=== PATIENT | female | born 1945 | race Caucasian/White ===

== ENCOUNTER 2017-04-17 21:45 | Emergency (ER) | payer MEDICARE | END 2017-04-17 22:52 | disposition home or self-care (01) | LOC: D.ER 21:45 | DX: S93.401A Sprain of unspecified ligament of right ankle, initial encounter (principal); W19.XXXA Unspecified fall, initial encounter; Y93.89 Activity, other specified; Y92.019 Unspecified place in single-family (private) house as the place of occurrence of the external cause; S93.402A Sprain of unspecified ligament of left ankle, initial encounter; M25.572 Pain in left ankle and joints of left foot; M25.571 Pain in right ankle and joints of right foot ==

== ENCOUNTER → 2017-08-26 11:52 | Outpatient (CLI) | payer MEDICARE | END | disposition home or self-care (01) | LOC: D.MAMMO 11:52 | DX: Z12.31 Encounter for screening mammogram for malignant neoplasm of breast (principal) ==

== ENCOUNTER → 2018-01-28 08:34 | Outpatient (CLI) | payer MEDICARE ==
--- NOTE | ~2018-01-28 | ST ---
PATIENT:MARIO ALBERTO MOREL MEDICAL RECORD: [id number] SEX: F LOCATION:[facility] ORDER #: ADMISSION DATE: 01/28/18 AGE OF PATIENT: 72 REFERRING PHYSICIAN: INTERPRETING PHYSICIAN: CALVIN STEWART MD DATE OF SERVICE: 01/28/2018 PROCEDURE: Nuclear Stress Test. INDICATION: Chest pain of unknown etiology, shortness of breath, hypertension, hyperlipidemia. She was exercised on standard Antonio protocol for 5 minutes, terminated due to achieving max target heart rate response with 31.5 mCi of sestamibi injected at peak stress, 10.9 mCi injected previously for rest images. FINDINGS: Gated SPECT reveals a preserved ejection fraction at 71% with good wall motion and thickening and brightening throughout all segments. SPECT imaging Cardiolite was used as myocardial perfusion agent. There is homogeneous uptake throughout all segments at rest and stress with no evidence of inducible ischemia or previous infarction. OVERALL IMPRESSION: 1. This is a normal nuclear stress test with no evidence of inducible ischemia or previous infarction. 2. Gated SPECT reveals preserved ejection fraction greater than 70%. In this patient with ongoing symptomatology, the current scan does not suggest the presence of hemodynamically significant coronary artery disease. We would evaluate noncardiac etiology of chest pain. TRANSINT:[id number] Voice Confirmation ID: [id number] DOCUMENT ID: [id number] CALVIN STEWART MD at 1856 CC: [id number] DICTATION DATE: 01/29/18 1302 INTERACTIVE MEDIA MARKETING SPECIALIST: 01/29/18 2350 DEP CLI 01/28/18 [id number] [place] [address]
== END | disposition home or self-care (01) ==
LOC: D.HCCARDIO 08:34
DX: I20.9 Angina pectoris, unspecified (principal)

== ENCOUNTER → 2018-05-15 12:02 | Outpatient (CLI) | payer MEDICARE, OTHER | END | disposition home or self-care (01) | LOC: D.US 12:02 | PROVIDERS: ATTEND Family Medicine | DX: E04.1 Nontoxic single thyroid nodule (principal) ==

== ENCOUNTER → 2020-08-25 08:58 | Outpatient (CLI) | payer MEDICARE, OTHER ==
--- NOTE | ~2020-08-25 | EC ---
PATIENT:MARIO ALBERTO MOREL DATE OF SERVICE: 08/25/20 SEX: F MEDICAL RECORD: [id number] DATE OF : 43 LOCATION:[facility] AGE OF PATIENT: 74 ADMISSION DATE: 08/25/20 REFERRING PHYSICIAN: INTERPRETING PHYSICIAN: JORGE KIDD MD ECHOCARDIOGRAM REPORT ECHO CHARGES 4 ECHO COMPLETE Date: 08/25/20 CLINICAL DIAGNOSIS: HEART MURMUR ECHOCARDIOGRAPHIC MEASUREMENTS (adult normal given) AC root (d.<3.7cm) 3.2 cm LV Septum d (<1.2 cm> 1.6 cm Valve Excursion 1.8 cm LV Septum (systole) 1.9 cm Left Atria (s.<4.0cm> 4.0 cm LVPW d(<1.2cm) 1.7 cm RV (d.<2.3cm) 3.5 cm LVPW (sytole) 2.0 cm LV diastole(<5.6CM) 5.0 cm MV E-F(>70mm/sec) cm LV systole 3.0 cm LVOT Diameter 1.8 cm MV exc.(>10mm) 1.6 cm Est.ejection fraction (50-75%) % DOPPLER: LVIT cm/sec A 84.0 cm/sec E 97.0 cm/sec LA cm/sec RVSP 31 mmHg LVOT 131 cm/sec AOP1/2T m/s Asc. Ao 181 cm/sec RVOT 70 cm/sec RA cm/sec PA 135 cm/sec AV Gradient Peak 13.08mmHg AV Mean 6.33 mmHg AV Area 1.8 cm MV Gradient Peak 4.92 mmHg MV Mean 1.55 mmHg MV Area cm COMMENTS: Industrial Hygiene Technician: 2 RADHA CARDOSO Gymnastic Teacher: 3 Dr. Olmos TAPE# PACS Pericardial Effusion N DATE OF SERVICE: Adequate 2D, color flow imaging, spectral Doppler, and M-Mode. FINDINGS: LVH is present. LV internal dimension is normal. Wall motion is normal. EF is greater than or equal to 55%. Left atrium is upper limits of normal at 4.8 cm. Mitral valve shows no prolapse. Trace to mild MR. Right side is grossly normal. Mild TR. TRANSINT:[id number] Voice Confirmation ID: [id number] DOCUMENT ID: [id number] ECHOCARDIOGRAM REPORT [id number] SONNEN,JORGE KNIGHT MD CC: [id number] DICTATION DATE: 08/28/20 1647 SUGARCANE RESEARCH TECHNICIAN: 08/28/20 2317 DEP CLI 08/25/20 [address] [place] [address]
== END | disposition home or self-care (01) ==
LOC: D.HCCECHO 08:58
PROVIDERS: ATTEND Internal Medicine Interventional Cardiology
DX: R01.1 Cardiac murmur, unspecified (principal)